=== PATIENT | female | born 1985 | race Caucasian/White ===

== ENCOUNTER 2019-06-30 15:17 | Emergency (ER) | payer OTHER, SELFPAY ==
[2019-06-30 15:21] VITALS: BP 172/119; PULSE 103; RESP 18; TEMP 36.1; O2SAT 99
[2019-06-30 16:38] LABS: Basophils Absolute Auto 0.1 K/mm3 (0.0-0.1); Basophils Percent Auto 0.6 % (0.2-1.2); Eosinophils Absolute Auto 0.3 K/mm3 (0-0.3); Hematocrit 48.6 % (37.0-47.0); Hemoglobin 15.4 g/dL (12.0-15.0); Immature Granulocyte Absolute 0.06 K/mm3 (0.00-0.031); Immature Granulocyte Percent A 0.5 % (0-0.5); Lymphocytes Absolute Auto 3.58 K/mm3 (0.9-3.2); Lymphocytes Percent Auto 28.7 % (18.3-44.2); Mean Corpuscular HGB Conc 31.7 g/dl (32-36); Mean Corpuscular Hemoglobin 26.5 pg (26-34); Mean Corpuscular Volume 83.6 fl (80-100); Mean Platelet Volume 10.5 fl (7.4-10.4); Monocytes Absolute Auto 0.9 K/mm3 (0.1-0.6); Monocytes Percent Auto 6.9 % (2.6-8.5); Neutrophils Absolute Auto 7.7 K/mm3 (1.3-6.7); Neutrophils Percent Auto 61.3 % (45.5-73.1); Platelet Count Result 522 k/mm3 (150-375); Red Blood Count 5.81 M/mm3 (4.2-5.4); Red Cell Distribution Width 15.4 % (11.5-14.5); White Blood Count 12.5 K/mm3 (4.5-10.0)
--- NOTE | 2019-06-30 16:40 | ED.FEMALEGU ---
HPI - Female Genitourinary General Chief complaint: Vaginal Bleeding Stated complaint: post op vag bleeding Time Seen by Provider: 06/30/19 16:32 Source: patient and RN notes reviewed Mode of arrival: ambulatory Limitations: no limitations History of Present Illness HPI Narrative: Pt is a 33 y/o female who presents to the ED with c/o heavy vaginal bleeding starting 2 days ago. She notes that she has a Hx of several endometrial biopsies for abnormal cell growth. Pt states that she received her most recent endometrial biopsy 2 days ago, and notes that she has had heavy vaginal bleeding ever since. She states that she has been passing bright red blood, and notes that she has been filling up 1 overnight pad every 2 hours. She reports dizziness, dyspnea on exertion, and lower ABD cramping accompanying her bleeding, but denies any dysuria, urinary frequency, vaginal discharge, fever, or chills. Pt states that she has no Hx of anemia. MD elicited complaint: vaginal bleeding Pertinent past history: other (endometrial biopsy) Onset (ago): day(s) (2) Location of symptoms: vaginal Vaginal discharge: none Vaginal bleeding: bright red and # pads per hour (.5) Associated symptoms: abdominal pain (lower ABD cramping) and other (dizziness; dyspnea on exertion) Review of Systems Review of Systems: All systems reviewed & are unremarkable except as noted in HPI and below Constitutional: Constitutional: Denies chills and Denies fever(s) Respiratory: Respiratory: Reports dyspnea on exertion Gastrointestinal: Gastrointestinal: Reports abdominal pain (lower ABD cramping) Genitourinary: Genitourinary: Reports abnormal vaginal bleeding, Denies dysuria, Denies vaginal discharge and Denies other (urinary frequency) Neurologic: Reports dizziness PMFSH Past Medical History Medical History Right ACL tear Surgical History Surgical History History of endometrial biopsy Hx of right knee surgery repair of rt ACL tear Social History Social History Smoking status: Never smoker Gender identity (if verbalized by the patient): Female Exam Narrative: Exam Narrative: GENERAL: Well-appearing, well-nourished, and in no acute distress. HEAD: Normocephalic, atraumatic. ENT: Mucous membranes moist. CHEST: Clear to auscultation. No respiratory distress. HEART: Regular rate and rhythm. Normal peripheral pulses. EXTREMITIES: Normal range of motion. Right lower extremity in a brace due to ACL reconstruction. : Normal external genitalia. Cervix closed with small piece of tissue and clotted blood coming from the os. No suprapubic tenderness or vaginal discharge. NEURO: Alert and oriented x3. Course Course Emergency Course: Patient informed of results. Discussed case with Dr. Curry. Discharge home with return questions. Consultations Consultation #1: Discussed case with [facility] [employer], Dr. Curry. Nothing additional needed. Pt can have close follow-up in clinic. Date: 06/30/19 Time: 17:26 Vital Signs Vital signs: Vital Signs Temperature 97.0 F L 06/30/19 15:21 Pulse Rate 103 H 06/30/19 15:21 Respiratory Rate 18 06/30/19 15:21 Blood Pressure 172/119 H 06/30/19 15:21 Pulse Oximetry 99 06/30/19 15:21 Temperature 97.0 F L 06/30/19 15:21 Pulse Rate 103 H 06/30/19 15:21 Respiratory Rate 18 06/30/19 15:21 Blood Pressure 172/119 H 06/30/19 15:21 Pulse Oximetry 99 06/30/19 15:21 MDM - Female Genitourinary Lab Data Result diagrams: 06/30/19 16:32 06/30/19 16:32 Labs: Lab Results 06/30/19 06/30/19 06/30/19 Range/Units 16:32 16:32 16:32 WBC 12.5 H (4.5-10.0) K/mm3 RBC 5.81 H (4.2-5.4) M/mm3 Hgb 15.4 H (12.0-15.0) g/dL Hct 48.6 H (37.0-47.0) % MCV 83.6 (80-100) fl MCH 26.5 (26-34) pg MCHC 31.7 L (32-36) g/dl RDW 15.4 H
[2019-06-30 16:54] LABS: Blood Urea Nitrogen 7 mg/dL (7-17); Calcium 9.3 mg/dL (8.4-10.2); Carbon Dioxide 22 mmol/L (22-30); Chloride 105 mmol/L (98-107); Estimated CRCL calculation 126 ml/min; Estimated Glomerular Filt Rate > 60; Glucose 124 mg/dL (65-105); Potassium 4.1 mmol/L (3.4-5.0); Sodium 139 mmol/L (137-145)
== END 2019-06-30 18:07 | disposition home or self-care (01) ==
PROVIDERS: Emergency Provider Emergency Medicine; PCP Obstetrics & Gynecology
DX: N93.9 Abnormal uterine and vaginal bleeding, unspecified (principal)
CPT/HCPCS: 36415; 80048; 85025; 86850; 86900; 86901; 99284

== ENCOUNTER 2019-07-02 22:23 | Emergency (ER) | payer OTHER, SELFPAY ==
--- NOTE | ~2019-07-02 | CT_ITS ---
EXAMINATION: CT abdomen pelvis w con DATE: 07/02/2019 23:59 INDICATION: Right lower quadrant abdominal pain. TECHNIQUE: Computed tomography (CT) of the abdomen and pelvis was performed with 100 mL Omnipaque-350 intravenous contrast. Automated exposure control and iterative reconstruction technique were employe d. The dose-length product was 1445.19 mGy-cm. COMPARISON: None FINDINGS: Lung bases are clear. Heart size is normal. No pericardial or pleural effusion. Liver, gallbladder, s pleen, pancreas and bilateral adrenal glands are normal. There are few bilateral subcentimeter low-at tenuation likely cysts which remain too small to definitively characterize. Bowels including the appe ndix are normal. 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 Bilateral adnexa are normal. No fr ee intraperitoneal gas or fluid. No pathologically enlarged abdominal or pelvic lymphadenopathy. Mild thoracolumbar spondylosis. IMPRESSION: 1. No acute intra-abdominal/pelvic process. Specifically the appendix is normal. 2. 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 Reviewed, dictated and finalized at location A. IMPRESSION: 1. No acute intra-abdominal/pelvic process. Specifically the appendix is normal . 2. 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
[2019-07-02 22:24] VITALS: BP 180/141; PULSE 73; RESP 16; TEMP 36.6; O2SAT 99
--- NOTE | 2019-07-02 22:30 | ED.ABDPAIN ---
HPI - Abdominal Pain General Chief Complaint: Abdominal Pain Stated Complaint: abd pain Time Seen by Provider: 07/02/19 22:29 Source: patient and RN notes reviewed Mode of arrival: other Limitations: no limitations History of Present Illness HPI narrative: Pt is a 33 y/o female who presents to the ED with c/o RLQ abdominal pain that radiates to her back that began (06/28/19), but has worsened today. Pt states that she had a follow up endometrial wall biopsy (06/28/19) by Dr. Curry. Pt states that her first biopsy showed hyperplasia and she was placed on Progesterone hormone therapy. Pt also reports nausea and vaginal spotting bleeding, but denies vomiting, dysuria, fever, and chills. MD elicited complaint: abdominal pain Onset (ago): day(s) Pain Consistency: constant Location: RLQ Radiation: back Context: confirms recent surgery/procedure Associated symptoms: nausea and other (vaginal spotting bleeding) Related Data Home Medications Medication Instructions Recorded Confirmed dapagliflozin-metformin [Xigduo XR] PO 07/02/19 escitalopram oxalate mg 07/02/19 metformin mg PO 07/02/19 Allergies Allergy/AdvReac Type Severity Reaction Status Date / Time No Known Allergies Allergy Verified 07/05/19 13:22 Review of Systems Review of Systems: All systems reviewed & are unremarkable except as noted in HPI and below Constitutional: Constitutional: Denies chills and Denies fever(s) Gastrointestinal: Gastrointestinal: Reports abdominal pain (RLQ, radiates to her back), Reports nausea and Denies vomiting Genitourinary: Genitourinary: Reports abnormal vaginal bleeding (spotting) PMFSH Social History Social History (System 07/05/19 @ 13:22 by Carmella Paulino) Smoking status: Never smoker Alcohol intake: never Substance use: never Substance use type: does not use Gender identity (if verbalized by the patient): Female Exam Narrative: Exam Narrative: General appearance: Well-developed, well-nourished Skin: Normal color Head: Normocephalic, nontraumatic Eyes: Clear conjunctiva ENT: Oropharynx normal, ears normal, nose normal Neck: Supple, nontender Chest and respiratory: Airway patent, no respiratory distress, no accessory muscle use Heart: Regular rate/rhythm Abdomen: Soft, mild to moderate tenderness right lower quadrant, no guarding or rebound, no organomegaly, quiet bowel sounds Vascular: Normal peripheral pulses, normal capillary refill. Musculoskeletal: Normal range of motion, nontender back Neurologic: Alert and oriented ?3, [employer] is normal as tested, no gross motor deficit Course Course Emergency Course: Improving Reevaluation(s) Reevaluation #1: Patient feeling okay, patient signed out to Dr. Peck at 12 midnight. Waiting for UA and CT abdomen and pelvis with IV contrast Date: 07/02/19 Time: 23:53 Vital Signs Vital signs: Vital Signs Temperature 36.6 C 07/02/19 22:24 Pulse Rate 73 07/02/19 22:24 Respiratory Rate 16 07/02/19 22:24 Blood Pressure 180/141 H 07/02/19 22:24 Pulse Oximetry 99 07/02/19 22:24 Temperature 36.6 C 07/03/19 00:55 Pulse Rate 62 07/03/19 00:41 Respiratory Rate 14 07/03/19 00:41 Blood Pressure 149/80 H 07/03/19 00:41 Pulse Oximetry 98 07/03/19 00:41 MDM - Abdominal Pain MDM Narrative Medical decision making narrative: Patient is morbidly obese, status post endometrial biopsy 2 days prior to right lower quadrant pain which started 5 days ago, currently does have slight vaginal spotting. My concern is him ruptured ovarian cyst, patient on progesterone, appendicitis, constipation, urinary tract infection, renal stone. Further plan to fol
[2019-07-02 22:37] VITALS: PULSE 81; RESP 16; O2SAT 98
[2019-07-02 22:55] LABS: Basophils Absolute Auto 0.1 K/mm3 (0.0-0.1); Basophils Percent Auto 0.6 % (0.2-1.2); Eosinophils Absolute Auto 0.3 K/mm3 (0-0.3); Eosinophils Percent Auto 2.3 % (0-4.4); Hematocrit 48.7 % (37.0-47.0); Hemoglobin 15.3 g/dL (12.0-15.0); Immature Granulocyte Absolute 0.09 K/mm3 (0.00-0.031); Immature Granulocyte Percent A 0.6 % (0-0.5); Lymphocytes Absolute Auto 3.99 K/mm3 (0.9-3.2); Lymphocytes Percent Auto 27.7 % (18.3-44.2); Mean Corpuscular HGB Conc 31.4 g/dl (32-36); Mean Corpuscular Hemoglobin 26.3 pg (26-34); Mean Corpuscular Volume 83.7 fl (80-100); Mean Platelet Volume 10.4 fl (7.4-10.4); Monocytes Absolute Auto 0.9 K/mm3 (0.1-0.6); Monocytes Percent Auto 6.1 % (2.6-8.5); Neutrophils Absolute Auto 9.1 K/mm3 (1.3-6.7); Neutrophils Percent Auto 62.7 % (45.5-73.1); Platelet Count Result 530 k/mm3 (150-375); Red Blood Count 5.82 M/mm3 (4.2-5.4); White Blood Count 14.4 K/mm3 (4.5-10.0)
[2019-07-02] MEDS: ONDANSETRON INJ 4 MG/2 ML VIAL IV PUSH (22:56)
[2019-07-02] MEDS: SODIUM CHLORIDE 0.9% IV 1,000 ML 999 ML IV CONT (22:56)
[2019-07-02 23:08] LABS: Alanine Aminotransferase 66 U/L (4-35); Albumin Level 4.5 g/dL (3.5-5.1); Alkaline Phosphatase 80 U/L (38-126); Aspartate Amino Transferase 54 U/L (14-36); Bilirubin,Total 0.8 mg/dL (0.2-1.3); Blood Urea Nitrogen 7 mg/dL (7-17); Calcium 9.6 mg/dL (8.4-10.2); Carbon Dioxide 22 mmol/L (22-30); Chloride 106 mmol/L (98-107); Estimated CRCL calculation 112 ml/min; Estimated Glomerular Filt Rate > 60; Glucose 203 mg/dL (65-105); Lipase 138 U/L (23-300); Potassium 3.9 mmol/L (3.4-5.0); Sodium 138 mmol/L (137-145)
[2019-07-02 23:58] LABS: Add Urine Microscopic? YES; Appearance Urine Cloudy (Clear); Bilirubin Urine Negative (Negative); Blood Urine 3+ (Negative); Calcium Oxalate Crystals Urine Many /hpf; Glucose Urine UA 3+ mg/dL (Negative); Ketones Urine Negative (Negative); Leukocyte Esterase Ur Trace LEU/UL (Negative); Mucus Urine Rare /lpf; Nitrate Urine Negative (Negative); Protein Urine 1+ mg/dL (Negative); RBC Urine >75 /hpf (0-2); Specific Grav Ur 1.012 (1.001-1.035); Squamous Epithelial Cell Urine Few /hpf (Few); Urobilinogen Urine Negative mg/dL (<2.0); WBC Urine 16-20 /hpf
[2019-07-03 00:04] LABS: Color Urine Red (Yellow)
[2019-07-03] MEDS: KETOROLAC 30 MG/ML VIAL (*BKC) IV PUSH (00:40)
[2019-07-03 00:41] VITALS: BP 149/80; PULSE 62; RESP 14; O2SAT 98
[2019-07-03 00:55] VITALS: TEMP 36.6
== END 2019-07-03 00:57 | disposition home or self-care (01) ==
PROVIDERS: Emergency Provider Emergency Medicine; PCP Physician Assistant
DX: R10.31 Right lower quadrant pain (principal); E11.9 Type 2 diabetes mellitus without complications; N85.00 Endometrial hyperplasia, unspecified; Z79.84 Long term (current) use of oral hypoglycemic drugs; E66.01 Morbid (severe) obesity due to excess calories; Z68.41 Body mass index [BMI] 40.0-44.9, adult; R93.89 Abnormal findings on diagnostic imaging of other specified body structures
CPT/HCPCS: 36415; 74177; 80053; 81001; 81025; 83690; 85025; 87086; 87088; 96361; 96374; 99284; J1885; J2405; J7030; Q9967

== ENCOUNTER 2021-09-11 06:35 | Outpatient (CLI) | payer OTHER, SELFPAY ==
--- NOTE | ~2021-09-11 | XR_ITS ---
EXAMINATION: XR hysterosalpingogram DATE: 09/11/2021 08:36 INDICATION: Female infertility. TECHNIQUE: Fluoroscopy was performed by the radiologist during contrast infusion into the endometrial cavity of the uterus by the primary physician. Fluoroscopy exposure time was 0.6 minutes. The total number of images was 7. FINDINGS: The intrauterine cavity demonstrates irregularity of the wall, likely synechiae. Left fallo pian tube is normal in caliber. There is normal free intraperitoneal spillage of contrast on the left . Early images of the right fallopian tube demonstrate dilatation. Free intraperitoneal contrast appe aring later in the right pelvis is contiguous with free intraperitoneal contrast arising from the lef t side. IMPRESSION: 1. Right-sided hydrosalpinx. Free intraperitoneal contrast in the right pelvis likely arises from the left side, but right-sided free intraperitoneal spillage of contrast cannot be excluded. 2. Normal left fallopian tube. Reviewed, dictated and finalized at location A.
[2021-09-11 08:15] LABS: Beta HCG Quantitative < 2.39 mIU/ML
--- NOTE | 2021-09-11 08:49 | W.PM.PROC2 ---
Procedure Note - Detailed Date of Procedure 09/11/21 Pre-op Diagnosis female infertility Post-op Diagnosis Same Procedure Performed Hysterosalpingogram Surgeon Jim Bonilla MD Anesthesia None Indications unexplained infertility Findings normal hysterosalpingogram Description of Procedure the patient was placed on the fluoroscopy table. A speculum was placed in the vagina. Cervix was grasped with a tenaculum. The catheter was placed the uterine cavity and the bulb was inflated. The speculum was removed with the angiocath still placed in the intrauterine cavity. Dye was then removed. The catheter. Fluoroscopic images obtained this process. Patient experienced some moderate to severe discomfort. The balloon of the catheter was deflated and the catheter was removed while the images were being obtained. The procedure was terminated. Patient tolerated the procedure well. There were no complications. Estimated Blood Loss 0 Complications No immediate complications Condition Stable Disposition Other
== END 2021-09-11 06:36 | disposition home or self-care (01) ==
PROVIDERS: PCP Physician Assistant; Visit Provider Obstetrics & Gynecology
DX: N97.9 Female infertility, unspecified (principal)
CPT/HCPCS: 36415; 58340; 74740; 84702; Q9966

== ENCOUNTER 2022-01-11 15:41 | Emergency (ER) | payer OTHER, SELFPAY ==
[2022-01-11 15:52] VITALS: BP 156/98; PULSE 98; RESP 20; TEMP 35.9; O2SAT 98
--- NOTE | 2022-01-11 15:58 | ED.URI ---
HPI - URI/Sore Throat General Chief Complaint: Upper Respiratory Infection Stated Complaint: fever, cough,body aches Time Seen by Provider: 01/11/22 15:55 Source: patient and RN notes reviewed Mode of arrival: ambulatory Limitations: no limitations History of Present Illness HPI Narrative: 36-year-old female presents with concern for 4 to 5-day history of cough, sore throat, stuffy nose, body aches, fever. She reports she took a COVID test at home and it was negative. She denies vomiting and diarrhea. Reports she has been taking Mucinex DM. MD elicited complaint: cough Related Data Home Medications Medication Instructions Recorded Confirmed dapagliflozin 10 mg-metformin ER PO 07/02/19 1,000 mg tablet,extended release 24hr (Xigduo XR) escitalopram oxalate 10 mg tablet mg 07/02/19 metformin 500 mg tablet,extended mg PO 07/02/19 release 24 hr semaglutide 0.25 mg or 0.5 mg (2 mg subcut 01/11/22 mg/1.5 mL) subcutaneous pen injector (EndoChoice) Allergies Allergy/AdvReac Type Severity Reaction Status Date / Time No Known Allergies Allergy Verified 07/05/19 13:22 Review of Systems Review of Systems: CONSTITUTIONAL: Reports malaise, fever. EYES: Denies visual changes, redness, or discharge. ENT: Reports rhinorrhea, congestion, and sore throat. Denies sinus pain, otalgia CARDIOVASCULAR: Denies chest pain, palpitations, or edema. RESPIRATORY: Reports cough. Denies dyspnea. GASTROINTESTINAL: Denies abdominal pain, nausea, vomiting, diarrhea SKIN: Denies rash or itching. MUSCULOSKELETAL: Reports myalgia. NEUROLOGIC: Denies headache. All systems reviewed & are unremarkable except as noted in HPI and below PMFSH Past Medical History Medical History (Updated 01/11/22 @ 15:59 by Barbara Vanegas NP) Carpal tunnel syndrome History of hormone therapy Progesterone, for hyperplasia Hyperplasia of endometrium determined by biopsy Right ACL tear Type II diabetes mellitus Surgical History Surgical History (Updated 07/05/19 @ 13:22 by Carmella Paulino) History of endometrial biopsy History of endometrial biopsy Hx of right knee surgery repair of rt ACL tear Social History Social History (System 07/05/19 @ 13:22 by Carmella Paulino) Smoking status: Never smoker Alcohol intake: never Substance use: never Substance use type: does not use Gender identity (if verbalized by the patient): Female Comments At time of signature, agree with nursing past medical, surgical, social and family history. There is no relevant family history pertinent to the presenting complaint Exam Narrative: GENERAL: Well-appearing, well-nourished, and in no acute distress. HEAD: Normocephalic EYES: PERRLA, conjunctivae clear ENT: Nares clear, turbinates edematous and erythematous, clear discharge. Mucous membranes moist. TM pearly chandra with dull light reflex bilaterally; no tragal tenderness. Oropharynx not erythematous without lesions. Tonsils not enlarged and without exudate, no drooling, no hoarseness, no trismus, uvula midline. NECK: Supple. No lymphadenopathy CHEST: Clear to auscultation, breath sounds equal. No wheezing, rhonchi, rales, or stridor. No respiratory distress, speaks in full sentences. Cough noted HEART: Regular rate and rhythm. No murmur heard. SKIN: Warm, dry, no rash. NEURO: Alert and oriented x3. PSYCH: Normal mood and affect Course Course Emergency Course: Patient is aware of diagnosis, understands and agrees to treatment plan. Anticipatory guidance given. Patient agrees to follow-up as directed and is aware of reasons to seek care at the emergency department. Portions of this record may have been created with voice recognition software Level of Care: Express Care Visit Vital Signs Vital signs: Vital Signs Temperature 96.7 F L 01/11/22 15:52 Pulse Rate 98 01/11/22 15:52 Respiratory Rate 20 01/11/22 15:52 Blood Pressure 156/98 H 01/11/22 15:52 Pulse Oximetry
== END 2022-01-11 16:06 | disposition home or self-care (01) ==
PROVIDERS: Emergency Provider Nurse Practitioner; PCP Physician Assistant
DX: J40 Bronchitis, not specified as acute or chronic (principal); E11.9 Type 2 diabetes mellitus without complications; N85.00 Endometrial hyperplasia, unspecified; Z79.84 Long term (current) use of oral hypoglycemic drugs
CPT/HCPCS: 99213; G0463

== ENCOUNTER 2022-12-02 10:43 | Emergency (ER) | payer OTHER, SELFPAY ==
[2022-12-02] VITALS (9 sets, daily range): BP systolic 108–152; BP diastolic 78–102; PULSE 75–92; RESP 16–33; TEMP 36.2–36.8; O2SAT 96–99
--- NOTE | ~2022-12-02 | CT_ITS ---
EXAMINATION: CT abdomen pelvis wo con DATE: 12/02/2022 15:59 INDICATION: Left flank pain. TECHNIQUE: Computed tomography (CT) of the abdomen and pelvis was performed without intravenous contr ast. Automated exposure control and iterative reconstruction technique were employed. The dose-length product was 1520.56 mGy-cm. COMPARISON: CT abdomen and pelvis 07/02/2019 FINDINGS: The visualized portions of the lung bases demonstrate minimal atelectasis. No pleural effus ion. The heart size is normal. No pericardial effusion. There is diffuse hepatic steatosis. The gallb ladder, spleen, pancreas, adrenal glands, and right kidney are normal. There is a 10 mm cyst in left kidney. There is no urolithiasis. There are no dilated loops of bowel. The appendix is normal. The ov cornelius are normal in size. There are no pathologically enlarged lymph nodes. There is no free intraper itoneal fluid. There is mild thoracic and lumbar spondylosis. There is mild chronic anterior wedging of L1 and T8 vertebral bodies. IMPRESSION: 1. No urolithiasis. 2. Diffuse hepatic steatosis. Reviewed, dictated and finalized at location E.
[2022-12-02 13:34] LABS: Basophils Absolute Auto 0.1 K/mm3 (0.0-0.1); Basophils Percent Auto 0.7 % (0.2-1.2); Eosinophils Absolute Auto 0.1 K/mm3 (0-0.3); Eosinophils Percent Auto 0.6 % (0-4.4); Hematocrit 47.5 % (37.0-47.0); Hemoglobin 15.3 g/dL (12.0-15.0); Immature Granulocyte Absolute 0.04 K/mm3 (0.00-0.031); Immature Granulocyte Percent A 0.5 % (0-0.5); Lymphocytes Absolute Auto 1.76 K/mm3 (0.9-3.2); Lymphocytes Percent Auto 20.8 % (18.3-44.2); Mean Corpuscular HGB Conc 32.2 g/dl (32-36); Mean Corpuscular Hemoglobin 27.7 pg (26-34); Mean Corpuscular Volume 86.1 fl (80-100); Mean Platelet Volume 9.2 fl (7.4-10.4); Monocytes Absolute Auto 0.8 K/mm3 (0.1-0.6); Monocytes Percent Auto 9.8 % (2.6-8.5); Neutrophils Absolute Auto 5.7 K/mm3 (1.3-6.7); Neutrophils Percent Auto 67.6 % (45.5-73.1); Platelet Count Result 387 k/mm3 (150-375); Red Blood Count 5.52 M/mm3 (4.2-5.4); Red Cell Distribution Width 14.9 % (11.5-14.5); White Blood Count 8.5 K/mm3 (4.5-10.0)
[2022-12-02 13:39] LABS: Appearance Urine Clear (Clear); Bacteria Urine Rare /hpf; Bilirubin Urine Negative (Negative); Blood Urine 1+ (Negative); Color Urine Yellow (Yellow); Glucose Urine UA 3+ mg/dL (Negative); Ketones Urine Negative (Negative); Leukocyte Esterase Ur Negative LEU/UL (Negative); Nitrate Urine Negative (Negative); Non Pathogenic Casts 0-2; Protein Urine Negative (Negative); Specific Grav Ur 1.028 (1.001-1.035); Squamous Epithelial Cell Urine Occasional /hpf (Few); Urobilinogen Urine 0.2 mg/dL (<2.0); WBC Urine 0-5 /hpf; pH Urine 5.5 (5.0-9.0)
[2022-12-02 13:45] LABS: Alanine Aminotransferase 35 U/L (6-35); Albumin Level 4.4 g/dL (3.5-5.1); Alkaline Phosphatase 82 U/L (38-126); Anion Gap 9 mmol/L (8-16); Aspartate Amino Transferase 32 U/L (14-36); Bilirubin,Total 0.9 mg/dL (0.2-1.3); Blood Urea Nitrogen 7 mg/dL (7-17); Carbon Dioxide 26 mmol/L (22-30); Chloride 103 mmol/L (98-107); Estimated CRCL calculation 116 ml/min; Estimated Glomerular Filt Rate > 60; Glucose 119 mg/dL (65-110); Lipase 199 U/L (23-300); Potassium 3.9 mmol/L (3.4-5.0); Sodium 138 mmol/L (137-145)
[2022-12-02 13:57] LABS: Add Urine Microscopic? YES
--- NOTE | 2022-12-02 15:46 | ED.ABDPAIN ---
HPI - Abdominal Pain General Chief Complaint: Abdominal Pain Stated Complaint: abd pain Time Seen by Provider: 12/02/22 15:10 Source: patient Limitations: no limitations History of Present Illness HPI narrative: Patient presents to the ED for left flank pain that is migrating to her left groin. Pain began around 0200 last night when it woke her up from sleep, waxes and wanes, improving, nothing tried, stabbing in quality, nothing makes better or worse, no history of this pain in the past. Denies fever, recent injuries, recent illness, chest pain, shortness of breath, dysuria, hematuria, urinary urgency, urinary frequency, nausea, vomiting, diarrhea, vaginal discharge, vaginal bleeding, history of kidney stones, rash, sore throat, myalgias. Admits to a history of PCOS with irregular periods. Related Data Home Medications Medication Instructions Recorded Confirmed dapagliflozin propaned 10 PO 07/02/19 mg-metformin ER 1,000 mg tablet,ext rel 24hr (Xigduo XR) escitalopram oxalate 10 mg tablet mg 07/02/19 metformin 500 mg tablet,extended mg PO 07/02/19 release 24 hr semaglutide 0.25 mg or 0.5 mg (2 mg subcut 01/11/ mg/1.5 mL) subcutaneous pen injector (Ozempic) Allergies Allergy/AdvReac Type Severity Reaction Status Date / Time No Known Allergies Allergy Verified 07/05/19 13:22 Review of Systems Review of Systems: A 10 system review of systems was completed on the patient and is negative except for what is stated in the HPI. Nursing and ancillary documentation was reviewed. [facility] Past Medical History Medical History (Updated 12/03/22 @ 00:00 by Semaj Faust) Carpal tunnel syndrome History of hormone therapy Progesterone, for hyperplasia Hyperplasia of endometrium determined by biopsy Right ACL tear Type II diabetes mellitus Surgical History Surgical History (Updated 07/05/19 @ 13:22 by Carmella Paulino) History of endometrial biopsy History of endometrial biopsy Hx of right knee surgery repair of rt ACL tear Social History Social History (System 07/05/19 @ 13:22 by Carmella Paulino) Smoking status: Never smoker Alcohol intake: never Substance use: never Substance use type: does not use Gender identity (if verbalized by the patient): Female Comments At time of signature, I have reviewed and agree with nursing past medical, surgical, social and family history unless otherwise noted. Please see the nursing chart for further information. There is no relevant family history pertinent to the presenting complaint. Exam Narrative: CONST: No acute distress. Well nourished. Obese. HENMT: Head is normocephalic and atraumatic. Moist mucous membranes. No posterior oropharynx erythema. EYES: No conjunctival icterus, injection, or pallor. PERRL. NECK: No meningeal signs. RESP: Able to speak in full sentences. Normal respiratory effort. CTAB. CARDIO: Regular rate. Regular rhythm. 2+ DP and radial pulses bilaterally. GI: Nondistended. No tenderness to palpation. Soft. No palpable masses or hernias. : Mild left CVA tenderness to palpation. SKIN: No rashes or lesions noted on exposed skin. NEURO: Oriented x3. Moves all extremities. EXTREM: No pedal edema. PSYCH: Normal affect. Course Vital Signs Vital signs: Vital Signs Temperature 97.2 F L 12/02/22 11:13 Pulse Rate 92 12/02/22 11:13 Respiratory Rate 16 12/02/22 11:13 Blood Pressure 145/83 H 12/02/22 11:13 Pulse Oximetry 98 12/02/22 11:13 Oxygen Delivery Room Air 12/02/22 11:13 Temperature 98.3 F 12/02/22 13:15 Pulse Rate 75 12/02/22 17:30 Respiratory Rate 25 H 12/02/22 16:15 Blood Pressure 108/89 12/02/22 17:30 Pulse Oximetry 99 12/02/22 17:30 Oxygen Delivery Room Air 12/02/22 11:13 MDM - Abdominal Pain MDM Narrative Medical decision making narrative: Patient presents with the above complaint. Initial vitals are remarkable for no signifi
[2022-12-02] MEDS: ONDANSETRON INJ 4 MG/2 ML VIAL IV PUSH (16:19)
[2022-12-02] MEDS: KETOROLAC 15 MG/ML VIAL (*BKC) IV PUSH (16:19)
== END 2022-12-02 17:30 | disposition home or self-care (01) ==
PROVIDERS: Emergency Provider Student in an Organized Health Care Education/Training Program; PCP Physician Assistant
DX: R10.32 Left lower quadrant pain (principal); R31.29 Other microscopic hematuria; E11.9 Type 2 diabetes mellitus without complications; E28.2 Polycystic ovarian syndrome; Z79.84 Long term (current) use of oral hypoglycemic drugs; Z79.85 Long-term (current) use of injectable non-insulin antidiabetic drugs; K76.0 Fatty (change of) liver, not elsewhere classified
CPT/HCPCS: 36415; 74176; 80053; 81001; 81025; 83690; 85025; 96374; 96375; 99284; J1885; J2405

== ENCOUNTER 2023-04-26 12:19 | Outpatient (CLI) | payer OTHER, SELFPAY ==
--- NOTE | 2023-04-26 14:30 | NEURO_ITS ---
Impression: # Complains of numbness of right hand. # Moderate right Carpal Tunnel Syndrome. # Normal needle/EMG exam. Nerve Conduction Studies Anti Sensory Summary Table Stim Site NR Peak (ms) P-T Amp (?V) Site1 Site2 Delta-P (ms) Dist (cm) Kiel (m/s) Right Median Anti Sensory (2-3nd Digit) Wrist 4.3 16.6 Wrist 2-3nd Digit 4.3 14.0 33 Wrist 4.3 26.7 Wrist 2-3nd Digit 4.3 14.0 33 Right Radial Anti Sensory (Base 1st Digit) Wrist 2.0 16.7 Wrist Base 1st Digit 2.0 0.0 Right Ulnar Anti Sensory (5th Digit) Wrist 2.2 45.6 Wrist 5th Digit 2.2 14.0 64 Motor Summary Table Stim Site NR Onset (ms) O-P Amp (mV) Site1 Site2 Delta-0 (ms) Dist (cm) Kiel (m/s) Right Median Motor (Abd Poll Brev) Wrist 4.9 4.2 Elbow Wrist 4.9 27.0 55 Elbow 9.8 1.6 Right Ulnar Motor (Abd Dig Minimi) Wrist 2.3 7.1 A Elbow Wrist 5.0 28.0 56 A Elbow 7.3 3.6 F Wave Studies NR F-Lat (ms) L-R F-Lat (ms) Right Median (Mrkrs) (Abd Poll Brev) 27.66 Right Ulnar (Mrkrs) (Abd Dig Min) 26.30 EMG Side Muscle Nerve Root Ins Act Fibs Amp Dur Recrt Comment Right 1stDorInt Ulnar C8-T1 Nml Nml Nml Nml Nml Right Ext Indicis Radial (Post Int) C7-8 Nml Nml Nml Nml Nml Right Ext Digitorum Radial (Post Int) C7-8 Nml Nml Nml Nml Nml Right BrachioRad Radial C5-6 Nml Nml Nml Nml Nml Right PronatorTeres Median C6-7 Nml Nml Nml Nml Nml Right Abd Poll Brev Median C8-T1 Nml Nml Nml Nml Nml MTDD
== END 2023-04-26 12:20 | disposition home or self-care (01) ==
PROVIDERS: PCP Physician Assistant; Visit Provider Physician Assistant
DX: G56.01 Carpal tunnel syndrome, right upper limb (principal)
CPT/HCPCS: 95886; 95909

== ENCOUNTER 2023-06-11 09:45 | Outpatient (CLI) | payer OTHER, SELFPAY ==
[2023-06-11 10:20] LABS: Anion Gap 7 mmol/L (8-16); Blood Urea Nitrogen 7 mg/dL (7-17); Calcium 8.9 mg/dL (8.4-10.2); Carbon Dioxide 25 mmol/L (22-30); Chloride 103 mmol/L (98-107); Estimated Glomerular Filt Rate > 60; Glucose 287 mg/dL (65-110); Potassium 3.7 mmol/L (3.4-5.0); Sodium 135 mmol/L (137-145)
== END 2023-06-11 09:46 | disposition home or self-care (01) ==
LOC: ANHLAB 09:47
PROVIDERS: PCP Physician Assistant; Visit Provider Anesthesiology
DX: E11.9 Type 2 diabetes mellitus without complications (principal); Z01.818 Encounter for other preprocedural examination
CPT/HCPCS: 36415; 80048

== ENCOUNTER 2023-06-13 02:09 | Day surgery (SDC) | payer OTHER, SELFPAY ==
[2023-06-06 13:54] VITALS: BMI 47.9
--- NOTE | 2023-06-06 14:02 | PC.NURSE ---
Report to the Outpatient Waiting Room, entrance under the green pavilion located off [facility], at time __0600_ on date _06/13/23__. Planned Procedure Time: ____729_. Time changes happen often and if your time is changed the preop area will call you the afternoon before. - You and your visitor will be asked to self-screen and do not enter if you have any COVID symptoms. - A mask is optional within the hospital at this time. - No food OR DRINK AFTER 11:[address] Jones - Infants may have breast milk until 4 hours before surgery, formula 6 hours prior to surgery. - Children will be allowed to drink immediately following surgery. If applicable, please bring a bottle or sippy cup to assist with drinking. Juice, water, soda, and popsicles are readily available. For infants on formula, please bring formula the day of surgery. Pacifiers are allowed. Take the following medications with a SIP of water the morning of surgery: ___BUPROPION, ESCITALOPRAM DO NOT STOP ANY OF YOUR OTHER PRESCRIPTION MEDICATIONS PRIOR TO SURGERY ?EXCEPT THE FOLLOWING Medications to discontinue per physician IBUPROFEN, MELOXICAM Date to take last dose 06/08/23 Please no make-up, nail mauritanian, hairspray, perfume, deodorant, or body powder the day of surgery. No jewelry (including any body piercings) or valuables the day of surgery, leave them at home. Please take a shower or bath the night before, or the morning of, surgery with an antibacterial soap. Wear comfortable, loose fitting clothing. Children are encouraged to wear pajamas. - Jewelry must be removed prior to entering the operating room. Rings and piercings that are not removed may be cut off. - The hospital will not accept responsibility for valuables. - Please leave all valuables, including medications, at home the day of surgery. If you are going home after surgery, a licensed tour bus driver must drive you home. - NO public transportation without another adult if you receive anesthesia. - We recommend that an adult stay with you for 24 hours following discharge. - We also recommend that you do not drive, make important decision, drink alcoholic beverages, or take any drugs that were not prescribed by your health care provider for at least 24 hours after your discharge time. For Pediatric surgeries, we recommend two adults accompany the child home. Follow any additional instructions given to you from your surgeon. If you or anyone in your household have experienced Covid symptoms in the past week, please notify your surgeon or the nurse liaison at the phone number below for possible testing. Telephone instructions given to _PATIENT__and asked if any additional questions and then verbalized understanding. Patient advised to call surgeon office or pre surgery nurse liaison [phone] if any additional questions.
[2023-06-13 06:47] LABS: Glucose Point of Care 317 mg/dl (65-105)
[2023-06-13 06:53] VITALS: BP 146/83; PULSE 71; RESP 14; TEMP 36; O2SAT 100
[2023-06-13] MEDS: LACTATED RINGERS 1,000 ML 30 ML IV CONT (07:00)
--- NOTE | 2023-06-13 07:03 | P.HP_ITS ---
History of Present Illness History of Present Illness Chief complaint: right carpal tunnel syndrome Narrative: Patient seen and examined in pre-operative holding area. No interval change in medical history or symptoms. Patient recalls previous discussion of benefits and alternatives to procedure. Continues to desire to proceed with right endoscopic possible open carpal tunnel release . Reviewed procedure, post-op expectations and risks including but not limited to bleeding, infection, injury to tendon/ner ve/vessel, decreased hand function, stiffness, RSD, no change or worsening of symptoms. I discussed the possible use of assistants and their participation in the case. Patient stated understanding and signed the consent form wishing to proceed. Review of Systems Review of Systems: All systems reviewed & are unremarkable except as noted in HPI and below PMFSH Past Medical History Medical History (Updated 02/18/23 @ 08:14 by Zonia Jones MD) Carpal tunnel syndrome History of hormone therapy Progesterone, for hyperplasia Hyperplasia of endometrium determined by biopsy Right ACL tear Type II diabetes mellitus Surgical History Surgical History (Updated 07/05/19 @ 13:22 by Carmella Paulino) History of endometrial biopsy History of endometrial biopsy Hx of right knee surgery repair of rt ACL tear Social History Social History (System 07/05/19 @ 13:22 by Carmella Paulino) Smoking status: Never smoker Alcohol intake: never Substance use: never Substance use type: does not use Living arrangements: with family Gender identity (if verbalized by the patient): Female Meds Home Medications and Allergies Home Medications Medication Instructions Recorded Confirmed Type dapagliflozin propaned 10 1 tablet PO DAILY 07/02/19 06/13/23 History mg-metformin ER 1,000 mg tablet,ext rel 24hr (Xigduo XR) escitalopram oxalate 10 mg tablet 20 mg PO DAILY 07/02/19 06/13/23 History metformin 500 mg tablet,extended 500 mg PO DAILY 07/02/19 06/13/23 History release 24 hr semaglutide 0.25 mg or 0.5 mg (2 1 mg subcut WEEKLY 01/11/22 06/13/23 History mg/1.5 mL) subcutaneous pen injector (Ozempic) ibuprofen 400 mg tablet 400 mg PO Q6H PRN pain #30 tabs 12/02/22 06/06/23 Rx meloxicam 7.5 mg tablet See Rx Instructions .Route 03/21/23 06/06/23 Rx .COMPLEX #30 tabs bupropion HCl 150 mg tablet,12 hr 150 mg PO DAILY 06/06/23 06/13/23 History sustained-release Allergies Allergy/AdvReac Type Severity Reaction Status Date / Time No Known Allergies Allergy Verified 06/13/23 07:05 Exam Narrative: unchanged Assessment and Plan Assessment and plan (1) Carpal tunnel syndrome of right wrist: Code(s): G56.01 - Carpal tunnel syndrome, right upper limb Status: Acute Assessment and Plan: as above
--- NOTE | 2023-06-13 07:05 | P.OP_ITS ---
Procedure Note - Detailed Date of Procedure 06/13/23 Pre-op Diagnosis right carpal tunnel syndrome Post-op Diagnosis Same Procedure Performed right ectr Surgeon Zonia Jones MD Co Founder And Director Elaine Milton PA-C Anesthesia MAC Description of Procedure INFORMED CONSENT: The patient was seen and examined and marked in the pre-op area.? The patient signed the consent form. PROCEDURE IN DETAIL:The patient taken back to OR on the stretcher in supine position. Time out performed with anesthesia, surgeon and staff agreeing on patient's name site and surgery to be performed SCDs were placed on the lower extremities and inflated. A tourniquet was placed on {right} upper extremity and antibiotics given IV After anesthesia administered sedation I injected {5}cc 1%lido with epi and 0.5% marcaine plain at the operative site The?{right upper extremity}?was prepped and draped in sterile fashion the??{right upper extremity} was? exsanguinated with Esmarch bandage and tourniquet inflated to 250mmHg I made a transverse incision in the {right} volar distal wrist crease through skin and dermis with 15 blade scalpel.? Littler scissors spread down to antebrachial fascia. A small incision was made in antebrachial fascia allowing access to Carpal tunnel. I proceeded with sequential dilation staying in line with the ring finger and hugging the hook of the hamate.? I then used the synovial elevator to free any adhesions from the underside of the transverse carpal ligament. Next I was able to insert the Microaire endoscopic carpal tunnel device with direct visualization of the transverse fibers on the monitor and proceeded with complete segmental retrograde release of the ligament in its entirety.? I irrigated with normal saline and closed with 4-0 monocryl for dermis and subcuticular closure. A dressing of Dermabond, 4x4, yaya, and a volar splint was applied for patient safety, security, and comfort and secured with an carrie bandage after the tourniquet was let down noting the hand was warm and well perfused. The patient was then awaken from anesthesia and transferred to the recovery room in stable condition.? Complications - none EBL- 0cc Disposition - home in stable conditions Elaine Milton PA-C was essential for positionng, retraction, closure and dressing placemement [facility] [place] Surgery - Charge Forward: Surgery Billing ([id number])
[2023-06-13] MEDS: INSULIN HUMAN REGULAR (*BKC) 100 UNITS/ML 20 UNITS SUB-Q (07:29)
--- NOTE | 2023-06-13 07:32 | WPDANESEPPF ---
Anes - Initial Pre Proc Eval Procedure: Operation Date: 06/13/23 07:30 Proposed Procedures p Right Endoscopic Carpal Tunnel Release, Possible Open - Zonia Jones MD Date/Time: 06/13/23 07:32 Surgeon: Zonia Jones MD Pre Op Diagnosis: right carpal tunnel syndrome Patient Data Age: 37 Gender: F Height: 1.55 m Weight: 119.8 kg Last Vital Signs Temp 96.8 F L 06/13/23 06:53 Pulse 71 06/13/23 06:53 Resp 14 06/13/23 06:53 BP 146/83 H 06/13/23 06:53 Pulse Ox 100 06/13/23 06:53 O2 Del Method Room Air 06/13/23 06:53 Allergies Allergy/AdvReac Type Severity Reaction Status Date / Time No Known Allergies Allergy Verified 06/13/23 07:05 Home Medications Medication Instructions Recorded Confirmed Type dapagliflozin propaned 10 1 tablet PO DAILY 07/02/19 06/13/23 History mg-metformin ER 1,000 mg tablet,ext rel 24hr (Xigduo XR) escitalopram oxalate 10 mg tablet 20 mg PO DAILY 07/02/19 06/13/23 History metformin 500 mg tablet,extended 500 mg PO DAILY 07/02/19 06/13/23 History release 24 hr semaglutide 0.25 mg or 0.5 mg (2 1 mg subcut WEEKLY 01/11/22 06/13/23 History mg/1.5 mL) subcutaneous pen injector (Ozempic) ibuprofen 400 mg tablet 400 mg PO Q6H PRN pain #30 tabs 12/02/22 06/06/23 Rx meloxicam 7.5 mg tablet See Rx Instructions .Route 03/21/23 06/06/23 Rx .COMPLEX #30 tabs bupropion HCl 150 mg tablet,12 hr 150 mg PO DAILY 06/06/23 06/13/23 History sustained-release tramadol 50 mg tablet 50 mg PO Q6H PRN pain #10 tabs 06/13/23 Rx Laboratory Tests 06/13/23 06:43 POC Capillary Glucose 317 H mg/dl (65-105) Patient hx anesthesia problems: none Family hx anesthesia problems: none Results Review: All pre-operative results and documents have been reviewed as part of the pre-operative evaluation. [facility] Past Medical History Medical History (Updated 02/18/23 @ 08:14 by Zonia Jones MD) Carpal tunnel syndrome History of hormone therapy Progesterone, for hyperplasia Hyperplasia of endometrium determined by biopsy Right ACL tear Type II diabetes mellitus Surgical History Surgical History (Updated 07/05/19 @ 13:22 by Carmella Paulino) History of endometrial biopsy History of endometrial biopsy Hx of right knee surgery repair of rt ACL tear Social History Social History (System 07/05/19 @ 13:22 by Carmella Paulino) Smoking status: Never smoker Alcohol intake: never Substance use: never Substance use type: does not use Living arrangements: with family Gender identity (if verbalized by the patient): Female Anes - Eval Final PreProcedure Day of Procedure 06/13/23 07:32 Patient weight: super morbidly obese Heart: regular rate and rhythm Lungs: clear to auscultation Airway: Mallampati scale class III Neurological: alert and oriented Last oral intake: >/= 8 hours ASA classification: III Emergent: no Anesthetic plan: proceed Anesthesia type and monitoring: general GIVS and standard monitoring Results Review: All pre-operative results and documents have been reviewed as part of the pre-operative evaluation. Informed Consent: The patient's anesthetic plan and its attendant risks and benefits were discussed with the patient/family/POA. Questions were solicited and answers provided to the satisfaction of the patient/family/POA.
[2023-06-13] MEDS: ceFAZolin 2 GM/D5W 50 ML 2 GM/50 ML BAG IVPB (07:37)
[2023-06-13] MEDS: LIDO 1%/EPINEPHRINE 1:100,000 50 ML VIAL 10 ML INFILTRATE (07:47)
[2023-06-13 08:02] VITALS: BP 99/41; PULSE 75; RESP 20; O2SAT 90
[2023-06-13 08:14] LABS: Glucose Point of Care 298 mg/dl (65-105)
[2023-06-13 08:30] VITALS: BP 109/62; PULSE 65; RESP 18; O2SAT 99
[2023-06-13 09:00] VITALS: BP 126/63; PULSE 71; RESP 18
== END 2023-06-13 09:12 | disposition home or self-care (01) ==
PROVIDERS: PCP Physician Assistant; Visit Provider Plastic Surgery
PROC: 01N54ZZ Release Median Nerve, Percutaneous Endoscopic Approach (ICD-10-PCS; CPT 29848; principal; 2023-06-13 07:30)
DX: G56.01 Carpal tunnel syndrome, right upper limb (principal); E11.9 Type 2 diabetes mellitus without complications
CPT/HCPCS: 29848; 36415; 80048; 82948; J0690; J1815; J2250; J2590; J2704; J3010; J7120